=== PATIENT | male | born 1945 ===

== ENCOUNTER 2017-12-16 17:40 | Emergency (ER) | payer MEDICARE ==
--- NOTE | 2017-12-16 18:09 | EDM.PDOC ---
<Jeff Garcia - Last Filed: 12/16/17 19:00> ED HPI GENERAL MEDICAL PROBLEM - General Chief Complaint: Lower Extremity Injury/Pain Stated Complaint: IN BY AMBULANCE Time Seen by Provider: 12/16/17 17:55 Source of Information: Reports: Patient History Limitations: Reports: Intoxication - History of Present Illness INITIAL COMMENTS - FREE TEXT/NARRATIVE: This 72 yo male patient reports to the ED with left leg pain. The patient does not know what happened to his leg. The patient was brought to the ED by [facility]. Prior to the ambulance being called, the patient was being escorted out of an apartment by law enforcement. The patient reports his pain started at about 1500 today. The patient denies any fall or injury to the area. Initially, the patient refused ambulance transport, but again reported pain in his left leg, then agreed to be transported by the ambulance to the ED. Onset: Today Onset Date: 12/16/17 Onset Time: 15:00 Duration: Constant Location: Reports: Lower Extremity, Left Quality: Reports: Ache, Dull Severity: Moderate Improves with: Reports: Rest Worsens with: Reports: Movement Associated Symptoms: Reports: No Other Symptoms Left Knee Pain Score (Numeric/FACES): 6 - Related Data Allergies Allergy/AdvReac Type Severity Reaction Status Date / Time No Known Allergies Allergy Verified 12/16/17 17:48 Home Meds: Home Meds . [No Known Home Meds] 12/16/17 [History] Past Medical History - Past Health History Medical/Surgical History: Denies Medical/Surgical History Social & Family History - Tobacco Use Smoking Status *Q: Never Smoker Second Hand Smoke Exposure: No - Recreational Drug Use Recreational Drug Use: No Review of Systems - Review of Systems Review Of Systems: ROS reveals no pertinent complaints other than HPI. ED EXAM, GENERAL - Physical Exam Exam: See Below Exam Limited By: Intoxication General Appearance: Alert, WD/WN, Moderate Distress Eye Exam: Bilateral Eye: EOMI, Normal Inspection, PERRL Ears: Normal External Exam, Normal Canal, Hearing Grossly Normal, Normal TMs Nose: Normal Inspection, Normal Mucosa, No Blood Throat/Mouth: Normal Inspection, Normal Lips, Normal Teeth, Normal Gums, Normal Oropharynx, Normal Voice, No Airway Compromise Head: Atraumatic, Normocephalic Neck: Normal Inspection, Supple, Non-Tender, Full Range of Motion Respiratory/Chest: No Respiratory Distress, Lungs Clear, Normal Breath Sounds, No Accessory Muscle Use, Chest Non-Tender Cardiovascular: Normal Peripheral Pulses, Regular Rate, Rhythm, No Edema, No Gallop, No JVD, No Murmur, No Rub GI/Abdominal: Normal Bowel Sounds, Soft, Non-Tender, No Organomegaly, No Distention, No Abnormal Bruit, No Mass (Male) Exam: Deferred Rectal (Males) Exam: Deferred Back Exam: Normal Inspection, Full Range of Motion, NT Extremities: Leg Pain (left distal thigh ) Neurological: Alert, Oriented, CN II-XII Intact, Normal Cognition, Normal Gait, Normal Reflexes, No Motor/Sensory Deficits Psychiatric: Normal Affect, Normal Mood Skin Exam: Other (left elbow abrasion) Lymphatic: No Adenopathy Course - Vital Signs Last Recorded V/S: Last Vital Signs Temp 97.9 F 12/16/17 17:43 Pulse 86 12/16/17 17:43 Resp 18 12/16/17 17:43 BP 117/68 12/16/17 17:43 Pulse Ox 98 12/16/17 17:43 - Orders/Labs/Meds Labs: Laboratory Tests 12/16/17 12/16/17 12/16/17 Range/Units 18:02 18:02 18:02 WBC 5.6 (5.0-10.0) 10^3/uL RBC 3.75 L (4.6-6.2) 10^6/uL Hgb 12.8 L (14.0-18.0) g/dL Hct 36.6 L (40.0-54.0) % MCV 97.6 (80-100) fL MCH 34.1 H (27.0-34.0) pg MCHC 35.0 (33.0-35.0) g/dL Plt Count 113 L (150-450) 10^3/uL Neut % (Auto) 58.8 (42.2-75.2) % Lymph % (Auto) 30.8 (20.5-50.1) % [place] % (Auto) 8.8 H (2-8) % Eos % (Auto) 0.7 L (1.0-3.0) % Baso % (Auto) 0.9 (0.0-1.0) % Sodium 127 L (135-145) mmol/L Potassium 4.0 (3.6-5.0) mmol/L Chloride 92 L (101-111) mmol/L Carbon Dioxide 23.0 (21.0-31.0) mmol/L Anion Gap 16.0 BUN 7 (7-18) mg/dL Creatinine 0.6 (0.6-1.3) mg/dL Est Cr Clr Drug Dosing 123.94 mL/min Estimated GFR (MDRD) > 60 BUN/Creatinine Ratio 11.66 Glucose 95 (74-105) mg/dL Uric Acid 8.3 H (2.6-7.2) mg/dL Calcium 8.3 L (8.4-10.2) mg/dl Total Bilirubin 1.4 H (0.2-1.0) mg/dL AST 34 (10-42) IU/L ALT 16 (10-60) IU/L Alkaline Phosphatase 104 (42-121) IU/L Total Protein 6.6 L (6.7-8.2) g/dl Albumin 3.3 (3.2-5.5) g/dl Globulin 3.3 Albumin/Globulin Ratio 1.00 Ethyl Alcohol 328 mg/dL Meds: Medications Discontinued Medications Generic Name Dose Route Start Last Admin Trade Name Freq PRN Reason Stop Dose Admin Multivitamins/Minerals 10 ml/ 1,011.2 mls @ 999 mls/hr 12/16/17 20:29 20:42 Folic Acid 1 mg/ Thiamine HCl IV 12/16/17 21:29 999 mls/hr 100 mg/ Lactated Ringer's ONETIME ONE Administration Departure - Departure Disposition: DC/Tfer to Acute Hospital 02 Clinical Impression: Intertrochanteric fracture, hip, Intoxication Fall Qualifiers: Encounter type: initial encounter Qualified Code(s): W19.XXXA - Unspecified fall, initial encounter - Discharge Information Referrals: PCP,Unobtain [Primary Care Provider] - Forms: ED Department Discharge <Radha Crespo - Last Filed: 12/18/17 03:55> Course - Re-Assessments/Exams Free Text/Narrative Re-Assessment/Exam: Patient retrun from CT, while awaiting results, Appeared patient crawled out end of bed or over rails. [place] thud and patient found lying on floor, face down wedged in corner. Patient awake and yelling. Departure - Departure Time of Disposition: 21:10 Condition: Undetermined
[2017-12-16 18:32] LABS: CHLORIDE,CL 92 mmol/L (101-111); SODIUM,NA 127 mmol/L (135-145)
[2017-12-16] MEDS ORDERED: MVI, Adult with Vitamin K 10 ML, Folic Acid 1 MG, Thiamine 100 MG in Lactated Ringers 1... IV ONE ×4 (20:29)
== END 2017-12-16 21:11 ==
LOC: DL.ED 17:40
DX: S72.142A Displaced intertrochanteric fracture of left femur, initial encounter for closed fracture (principal); S50.312A Abrasion of left elbow, initial encounter; W19.XXXA Unspecified fall, initial encounter
CPT/HCPCS: 36415; 70450; 70486; 72125; 73551; 73590; 73700; 80053; 84550; 85025; 96365; 99285; G0480; J3411; J7120; 99283; J3490